=== PATIENT | male | born 1970 | race Caucasian/White ===

== ENCOUNTER 2022-02-10 12:43 | Day surgery (SDC) | payer OTHER ==
[~2022-02-10] VITALS: Ht 175.3 cm; Wt 112.3 kg
[2022-02-10 12:55] VITALS: BP 133/92
[2022-02-10] MEDS ORDERED: LISI20TA28 PO (13:01)
[2022-02-10] MEDS ORDERED: TRIA15CR61 TOP (13:02)
[2022-02-10] MEDS ORDERED: MIDAZolam 1 MG/ML 5ML VIAL ONE (13:24)
[2022-02-10] MEDS ORDERED: fentaNYL/PF 50MCG/1 ML 2ML syringe ONE (13:24)
[2022-02-10 14:14] VITALS: BP 121/78
[2022-02-10 14:24] VITALS: BP 125/79
[2022-02-10 14:34] VITALS: BP 117/69
[2022-02-10 14:44] VITALS: BP 115/72
== END 2022-02-10 14:47 | disposition home or self-care (01) ==
LOC: GI LAB 12:43
PROVIDERS: ATTEND Internal Medicine Gastroenterology
DX: Z12.11 Encounter for screening for malignant neoplasm of colon (principal); D12.8 Benign neoplasm of rectum; K64.8 Other hemorrhoids; Z79.899 Other long term (current) drug therapy
CPT/HCPCS: 45380; J2250; J3010; J7030; Z7512; 99152; 99153; A4620

== ENCOUNTER 2022-06-24 08:57 | Emergency (ER) | payer OTHER ==
[~2022-06-24] VITALS: Ht 175.3 cm; Wt 117.3 kg
[~2022-06-24 08:57] MED LIST: LISI20TA28 PO; TRIA15CR61 TOP
[2022-06-24 09:56] LABS: CLARITY,URINE CLEAR (Clear); COLOR,URINE STRAW (Yellow); GLUCOSE, URINE NEGATIVE (Neg); KETONES,URINE NEGATIVE (Neg); LEUKOCYTE ESTERASE ,URINE NEGATIVE (Neg); NITRITES, URINE NEGATIVE (Neg); OCCULT BLOOD,URINE NEGATIVE (Neg); PH,URINE 6.5 (4.8-8.0); PROTEIN,URINE NEGATIVE (Neg); UROBILINOGEN,URINE 0.2 E.U/dL (0.2-1.0)
[2022-06-24 10:04] LABS: UA COLLECTION TYPE CLN CATCH MIDSTREAM
[2022-06-24 10:38] VITALS: BP 123/89
== END 2022-06-24 10:39 | disposition home or self-care (01) ==
LOC: ER 08:57
DX: N43.2 Other hydrocele (principal); N50.812 Left testicular pain; N50.3 Cyst of epididymis; Z79.899 Other long term (current) drug therapy
CPT/HCPCS: 76857; 76870; 81003; 93976; 99284